=== PATIENT | male | born 1975 | race Caucasian/White ===

== ENCOUNTER 2017-01-18 18:19 | Emergency (ER) | payer SELFPAY ==
[~2017-01-18] VITALS: Ht 188 cm; Wt 132.4 kg
[2017-01-18 18:23] VITALS: BP 135/91
== END 2017-01-18 20:07 | disposition home or self-care (01) ==
LOC: ED 18:19
DX: S91.2 Open wound of toe with damage to nail (principal); R03.0 Elevated blood-pressure reading, without diagnosis of hypertension; X58.XXXA Exposure to other specified factors, initial encounter; Y93.89 Activity, other specified; Y99.8 Other external cause status; Y92.89 Other specified places as the place of occurrence of the external cause
CPT/HCPCS: 90715; Q0092